=== PATIENT | male | born 1960 | race Caucasian/White ===

== ENCOUNTER 2017-12-04 23:25 | Emergency (ER) | payer SELFPAY ==
[~2017-12-04] VITALS: Ht 180.3 cm; Wt 95.3 kg
[2017-12-04 23:30] VITALS: BP_SYST 148
[2017-12-05] MEDS ORDERED: DIAZEPAM 5 MG TABLET (VALIUM) PO ONE
[2017-12-05 06:25] VITALS: BP_SYST 135
== END 2017-12-05 06:25 | disposition home or self-care (01) ==
LOC: SED 23:25
DX: F41.9 Anxiety disorder, unspecified (principal); I10 Essential (primary) hypertension; Z98.890 Other specified postprocedural states
CPT/HCPCS: 99284